=== PATIENT | male | born 2005 | race Caucasian/White ===

== ENCOUNTER 2025-07-02 10:56 | Outpatient (CLI) | payer OTHER, SELFPAY | END 2025-07-02 10:57 | disposition home or self-care (01) | LOC: LKVREF 10:57 | PROVIDERS: PCP Family Medicine; Visit Provider Family Medicine | DX: Z00.00 Encounter for general adult medical examination without abnormal findings (principal); R53.83 Other fatigue | CPT/HCPCS: 80048; 80061; 82306 ==